=== PATIENT | male | born 1955 | race Caucasian/White ===

== ENCOUNTER 2018-07-06 07:50 | Day surgery (SDC) | payer MEDICAID ==
[~2018-07-06 07:50] MED LIST: Midazolam 1 MG/ML 2 ML SDV ONE; Propofol 200 MG/20 ML SDV ONE; fentaNYL 100 MCG/2 ML SDV ONE
[2018-07-06] MEDS ORDERED: Lactated Ringers 1,000 ML IV SCH (08:00)
[2018-07-06] MEDS ORDERED: Propofol 200 MG/20 ML SDV ONE ×3 (09:28→10:01)
--- NOTE | 2018-07-06 12:18 | OR ---
DATE OF PROCEDURE: 07/06/2018 PREOPERATIVE DIAGNOSIS: History of colon polyps. POSTOPERATIVE DIAGNOSES: 1. Diverticulosis. 2. Small hepatic flexure polyp. 3. History of colon polyps. PROCEDURE PERFORMED: Colonoscopy to the cecum with biopsy resection of small hepatic flexure polyp. ANESTHESIA: IV anesthesia with monitored anesthesia care. INDICATION: This 63-year-old white male is referred for a colonoscopy because of a history of adenomatous colon polyps. He is not sure when his last colonoscopic exam was. I counseled him for the procedure, including risks and alternatives, and he gave his informed consent to proceed. DESCRIPTION OF PROCEDURE: The patient was placed in the left lateral decubitus position. IV anesthesia was administered by the Anesthesia Service. Time-out was held. A rectal exam was performed, which was unremarkable. The flexible video Olympus colonoscope was introduced through his anus, up his rectum and out his colon, all the way to the cecum. En route, we saw few scattered both left and right-sided diverticula. There was no bleeding or inflammation associated with any of them. To reach the cecum, we had to apply abdominal compression with the patient in both the left lateral and supine positions. Once the cecum was reached, the scope was slowly withdrawn examining the mucosa throughout. No additional mucosal abnormalities were noted until we reached the hepatic flexure. Here, a small polyp was seen which was removed with a single bite of the biopsy forceps. The scope was withdrawn further with no other additional lesions noted. The scope was retroflexed in the rectum with the distal rectum appearing unremarkable. The scope was straightened and removed. He tolerated the procedure well. Gary Comer MD /[id number]
== END 2018-07-06 11:02 | disposition home or self-care (01) ==
LOC: JP.SDS 07:50
PROVIDERS: ATTEND Surgery
DX: Z12.11 Encounter for screening for malignant neoplasm of colon (principal); D12.3 Benign neoplasm of transverse colon; K57.30 Diverticulosis of large intestine without perforation or abscess without bleeding; E11.9 Type 2 diabetes mellitus without complications; F17.200 Nicotine dependence, unspecified, uncomplicated; I25.10 Atherosclerotic heart disease of native coronary artery without angina pectoris; E78.5 Hyperlipidemia, unspecified; F43.10 Post-traumatic stress disorder, unspecified; F41.9 Anxiety disorder, unspecified; F32.9 Major depressive disorder, single episode, unspecified; Z86.010 Personal history of colon polyps; Z85.51 Personal history of malignant neoplasm of bladder
CPT/HCPCS: 45380; J2250; J2704; J3010; J7120